=== PATIENT | female | born 1985 | race African-American/Black ===

== ENCOUNTER 2016-06-17 22:35 | Emergency (ER) | payer BC | END 2016-06-18 00:10 | disposition home or self-care (01) | LOC: CFTX 22:35 → CED 22:35 → CFTX 23:59 | DX: L25.9 Unspecified contact dermatitis, unspecified cause (principal); L03.116 Cellulitis of left lower limb; L03.311 Cellulitis of abdominal wall; F17.210 Nicotine dependence, cigarettes, uncomplicated | CPT/HCPCS: 99282 ==

== ENCOUNTER 2016-07-10 03:30 | Emergency (ER) | payer BC ==
[2016-07-10 05:18] LABS: INFLUENZA A NEG (NEG)
[2016-07-10 05:19] LABS: INFLUENZA B NEG (NEG)
== END 2016-07-10 07:55 | disposition home or self-care (01) ==
LOC: CED 03:30
DX: J01.90 Acute sinusitis, unspecified (principal); Z79.899 Other long term (current) drug therapy; Z98.890 Other specified postprocedural states
CPT/HCPCS: 87651; 87804; 99283